=== PATIENT | male | born 1955 | race Caucasian/White ===

== ENCOUNTER 2017-11-21 13:31 | Emergency (ER) | payer BC, OTHER ==
[~2017-11-21] VITALS: Ht 193 cm; Wt 88.9 kg
[~2017-11-21 13:31] MED LIST: Z.0.NO CURRENT MEDS
[2017-11-21 13:37] VITALS: BP 137/88; PULSE 66; RESP 18; TEMP 97.8; O2SAT 98
[2017-11-21] MEDS ORDERED: LIDOCAINE 1%/EPINEPHrine 1:100,000 SOLN 20 ML VIAL INFIL ONE (14:00)
[2017-11-21] MEDS ORDERED: CEPH-460 PO (14:31)
--- NOTE | 2017-11-21 14:34 | PD ---
HPI Chief Complaint: Laceration/Skin Injury Time Seen by Provider: 13:56 Travel History International Travel<30 days: No Contact w/Intl Traveler<30days: No Traveled to known affect area: No History of Present Illness HPI 62-year-old male here with a laceration to left palm/wrist caused by paint scraper. He denies paresthesia or weakness in the hand. He is able to flex and extend all fingers. Reports normal sensation. Bleeding is well- controlled. He is up-to-date on tetanus. He has mild pain at the site of the laceration which is constant. No aggravating or alleviating factors. PFSH Past Medical History Arthritis: Yes Asthma: No Autoimmune Disease: No Blood Disorders: No Anxiety: No Depression: No Heart Rhythm Problems: No Cardiovascular Problems: No High Cholesterol: No Chemotherapy: Yes Chest Pain: No Congestive Heart Failure: No COPD: No Diabetes: No Diminished Hearing: No Endocrine: No GERD: No Glaucoma: No Genitourinary: No Hepatitis: No Hiatal Hernia: No Hypertension: No Immune Disorder: No Kidney Stones: No Musculoskeletal: Yes Neurologic: Yes Psychiatric: No Reproductive: No Respiratory: No Migraines: Yes Myocardial Infarction: No Radiation Therapy: No Renal Failure: No Sickle Cell Disease: No Sleep Apnea: No Thyroid Disease: No Ulcer: No Tetanus Vaccination: < 5 Years Influenza Vaccination: No Past Surgical History Abdominal Surgery: No AICD: No Appendectomy: No Arteriovenous Shunt: No Cardiac Surgery: No Cholecystectomy: No Ear Surgery: No Endocrine Surgery: No Eye Surgery: No Genitourinary Surgery: No Gynecologic Surgery: No Insulin Pump: No Joint Replacement: No Oral Surgery: No Pacemaker: No Thoracic Surgery: No Social History Alcohol Use: Yes (ONE DRINK DAILY) Tobacco Use: No Substance Use: No Allergies-Medications (Allergen,Severity, Reaction): Coded Allergies: No Known Allergies (Verified Adverse Reaction, Unknown, 11/21/17) Reported Meds & Prescriptions Reported Meds & Active Scripts Active Keflex (Cephalexin) 500 Mg Capsule 500 Mg PO Q6H 5 Days Reported No Current Meds (Miscellaneous Medication) Misc Review of Systems Except as stated in HPI: all other systems reviewed are Neg Physical Exam Narrative GENERAL: Alert well-appearing 62-year-old male SKIN: Warm and dry. HEAD: Normocephalic. EYES: No scleral icterus. No injection or drainage. NECK: Supple MUSCULOSKELETAL: No cyanosis, or edema. Left hand: 2.5 centimeter laceration to the lateral aspect of the wrist extending into the palm. No tendon or vascular injury identified. Wound has non-pulsatile bleeding. Patient is able to flex and extend the wrist and all fingers. 2+ radial pulse. Normal coloration of the hand. Normal sensation in the hand and fingers. Brisk cap refill. Data Data Last Documented VS Vital Signs Date Time Temp Pulse Resp B/P (MAP) Pulse Ox O2 Delivery O2 Flow Rate FiO2 11/21/17 13:37 97.8 66 18 137/88 (104) 98 Orders Orders Lidocai-Epi 1%-1:100,000 Inj (Xylocaine- (11/21/17 14:00) Ed Discharge Order (11/21/17 14:35) [facility] Medical Decision Making Medical Screen Exam Complete: Yes Emergency Medical Condition: Yes Differential Diagnosis Laceration, tendon injury, asthma injury Narrative Course 62-year-old male here with a laceration to the left wrist. There is no pulsatile bleeding. Palpable radial pulse. Good coloration in the hand. Brisk cap refill. Normal sensation. Laceration repair performed. Patient tolerated procedure well. Instructed to follow-up with his primary doctor for suture removal. Strict return precautions were discussed. Patient verbalizes understanding and agrees to plan Procedures Procedure Narrative LACERATION LOCATION: L wrist LENGTH: 2 CM NUMBER OF STITCHES/IMANI: 7 REPAIR: The area of the laceration was prepped with Betadine and sterilely draped. The laceration was infiltrated with 1% lidocaine with epi. The wound was copiously irrigated and explored without evidence of foreign body, tendon injury or neurovascular injury. The wound was closed using 4-0 Ethilon. This was a single layer repair. A sterile dressing was applied. The patient was advised to keep the dressing clean and dry. Patient tolerated the procedure well. Diagnosis Primary Impression: Wrist laceration Qualified Codes: S61.512A - Laceration without foreign body of left wrist, initial encounter Referrals: Primary Care Physician Additional Instructions: Cleansed the area daily with soap and water. Apply clean dry dressing daily. Sutures need to be removed in 7-10 days. Return to the emergency department if he develops change in color or sensation of the hand. Severe increasing pain. Scripts Cephalexin (Keflex) 500 Mg Capsule 500 MG PO Q6H for Infection for 5 Days, #20 CAP 0 Refills Prov: Sharmila De La Rosa 11/21/17 Disposition: 01 DISCHARGE HOME Condition: Stable Sharmila De La Rosa Nov 21, 2017 14:34
== END 2017-11-21 15:16 | disposition home or self-care (01) ==
LOC: PHEFT 13:31
DX: S61.512A Laceration without foreign body of left wrist, initial encounter (principal); W27.8XXA Contact with other nonpowered hand tool, initial encounter
CPT/HCPCS: 12001